=== PATIENT | male | born 1980 | race Caucasian/White ===

== ENCOUNTER 2020-12-02 15:09 | Emergency (ER) | payer MEDICAID ==
[~2020-12-02] VITALS: Ht 185.4 cm; Wt 72.6 kg
[2020-12-02 17:22] VITALS: BP 120/76
== END 2020-12-02 18:41 | disposition home or self-care (01) ==
LOC: ER 15:10
DX: S83.8X1A Sprain of other specified parts of right knee, initial encounter (principal); F17.210 Nicotine dependence, cigarettes, uncomplicated; X58.XXXA Exposure to other specified factors, initial encounter; Y93.89 Activity, other specified; Y92.89 Other specified places as the place of occurrence of the external cause; Y99.8 Other external cause status
CPT/HCPCS: 29505; 73562

== ENCOUNTER 2022-04-10 16:14 | Emergency (ER) | payer MEDICAID ==
[~2022-04-10] VITALS: Ht 185.4 cm; Wt 75.0 kg
[2022-04-10] MEDS ORDERED: KETOROLAC TROMETH 30 MG/ML 1ML VIAL IM ONE (17:00)
[2022-04-10 18:05] VITALS: BP 123/78
[2022-04-10] MEDS ORDERED: IBUP800T27 PO (18:14)
== END 2022-04-10 18:24 | disposition home or self-care (01) ==
LOC: ER 16:14
DX: S83.92XA Sprain of unspecified site of left knee, initial encounter (principal); F17.210 Nicotine dependence, cigarettes, uncomplicated; F12.10 Cannabis abuse, uncomplicated; X58.XXXA Exposure to other specified factors, initial encounter; Y93.89 Activity, other specified; Y92.89 Other specified places as the place of occurrence of the external cause; Y99.8 Other external cause status
CPT/HCPCS: 73562; 96372; 99283; J1885